=== PATIENT | male | born 1995 | race Native Hawaiian/Other Pacific Islander ===

== ENCOUNTER 2020-04-30 18:05 | Emergency (ER) | payer OTHER ==
[~2020-04-30] VITALS: Ht 175.3 cm; Wt 81.7 kg
[2020-04-30] MEDS ORDERED: KEFLEX500 M2 PO (18:57)
[2020-04-30] MEDS ORDERED: IBU600 MG PO (18:57)
[2020-04-30 19:09] VITALS: BP 124/70
== END 2020-04-30 19:11 | disposition home or self-care (01) ==
LOC: M.ERS 18:05 → EDBD 18:05 → M.ERS 19:11
DX: S80.12XA Contusion of left lower leg, initial encounter (principal); L03.116 Cellulitis of left lower limb; W11.XXXA Fall on and from ladder, initial encounter; Y93.89 Activity, other specified; Y92.89 Other specified places as the place of occurrence of the external cause; Y99.8 Other external cause status